=== PATIENT | female | born 1990 | race American Indian/Alaskan Native ===

== ENCOUNTER 2017-07-21 11:32 | Emergency (ER) | payer OTHER ==
[2017-07-21 11:45] VITALS: RESP 18; TEMP 98.4; O2SAT 100
--- NOTE | 2017-07-21 12:03 | ED PDOC ---
Arrival/HPI - General Chief Complaint: Abdominal Pain Time Seen by Provider: 07/21/17 11:37 Historian: Patient - History of Present Illness Narrative History of Present Illness (Text): 07/21/17 12:00 26 year old female presents to the Emergency department complaining of sharp periumbilical pain for 2 days. Patient states she has never experienced this before. Patient denies any fever, chills, chest pain, shortness of breath, radiation of pain, nausea, vomiting, diarrhea, genitourinary symptoms, back pain , neck pain, headache, dizziness, or any other complaints. Time/Duration: < week (2 days) Symptom Onset: Gradual Symptom Course: Unchanged Context: Home Associated Symptoms (Text): 07/21/17 12:24 Sharp periumbilical abdominal pain for 2 days. Patient relates it to eating fatty fried food. No nausea vomiting or diarrhea. No genitourinary symptoms. No radiation. No chest pain palpitations or dyspnea. No fever or chills. She has never experienced this previously. Past Medical History - Provider Review Nursing Documentation Reviewed: Yes - Infectious Disease Hx of Infectious Diseases: None - Psychiatric Hx Substance Use: No Family/Social History - Physician Review Nursing Documentation Reviewed: Yes Family/Social History: Unknown Family HX Smoking Status: Light Smoker < 10 Cigarettes Daily Hx Alcohol Use: Yes Frequency of alcohol use: Socially Hx Substance Use: Yes (Marijuana) Allergies/Home Meds Allergies/Adverse Reactions: Allergies No Known Allergies Allergy (Verified 07/21/17 11:45) Home Medications: Home Meds Medication Instructions Recorded Confirmed Norgestimate-Ethinyl Estradiol 1 tab PO DAILY 07/21/17 07/21/17 [Bond-Linyah 35 Mcg-0.25 mg] Review of Systems - Physician Review All systems were reviewed & negative as marked: Yes - Review of Systems Constitutional: absent: Fatigue, Fevers, Night Sweats Respiratory: absent: SOB, Cough, Sputum, Wheezing Cardiovascular: absent: Chest Pain, Syncope Gastrointestinal: Abdominal Pain (periumbilical pain). absent: Diarrhea, Nausea , Vomiting Genitourinary Female: absent: Dysuria, Frequency, Hematuria Musculoskeletal: absent: Back Pain, Neck Pain Neurological: absent: Headache, Dizziness Physical Exam Vital Signs Reviewed: Yes Vital Signs Temp Pulse Resp BP Pulse Ox 07/21/17 11:39 98.4 F 62 18 124/79 100 Temperature: Afebrile Blood Pressure: Normal Pulse: Regular Respiratory Rate: Normal Appearance: Positive for: Well-Appearing, Non-Toxic, Uncomfortable Pain Distress: Mild Mental Status: Positive for: Alert and Oriented X 3 - Systems Exam Head: Present: Atraumatic, Normocephalic Pupils: Present: PERRL Extroacular Muscles: Present: EOMI Conjunctiva: Present: Normal Mouth: Present: Moist Mucous Membranes Pharnyx: No: ERYTHEMA, EXUDATE, TONSILS ENLARGED Neck: Present: Normal Range of Motion Respiratory/Chest: Present: Clear to Auscultation, Good Air Exchange. No: Respiratory Distress, Accessory Muscle Use Cardiovascular: Present: Regular Rate and Rhythm, Normal S1, S2. No: Murmurs Abdomen: Present: Tenderness (mild generalized abdominal tenderness), Normal Bowel Sounds, Guarding (voluntary). No: Distention, Peritoneal Signs, Rebound Back: Present: Normal Inspection. No: CVA Tenderness Upper Extremity: Present: Normal Inspection. No: Cyanosis, Edema Lower Extremity: Present: Normal Inspection. No: Edema Neurological: Present: GCS=15, CN II-XII Intact, Speech Normal, Motor Func Grossly Intact Skin: Present: Warm, Dry, Normal Color. No: Rashes Psychiatric: Present: Alert, Oriented x 3, Normal Insight, Normal Concentration Medical Decision Making ED Course and Treatment: 07/21/17 12:05 Impression: 26 year old female presents to the Emergency department complaining of sharp periumbilical pain. Plan: -- Abdominal ultrasound -- Urinalysis, HCG qualitative -- Labs -- Toradol, Protonix, Sodium Chloride IV fluids -- Reassess and disposition Progress Notes: 07/21/17 14:06 Pain is improved with Protonix and Toradol. 07/21/17 14:33 Symptoms have improved. Workup is unremarkable. Patient will be discharged home with boyfriend to follow up with PMD. Follow-up in the ER as needed. - Lab Interpretations Lab Results: 07/21/17 12:30 07/21/17 12:30 Lab Results 07/21/17 12:30: Sodium 140, Potassium 4.7, Chloride 105, Carbon Dioxide 26, Anion Gap 15, BUN 11, Creatinine 0.8, Est GFR ( Amer) > 60, Est GFR (Non- Af Amer) > 60, Random Glucose 92, Calcium 9.8, Total Bilirubin 0.9, AST 22, ALT 16, Alkaline Phosphatase 31 L, Total Protein 7.9, Albumin 4.3, Globulin 3.7, Albumin/Globulin Ratio 1.2, Lipase 97 07/21/17 12:30: WBC 5.0, RBC 5.26, Hgb 12.3, Hct 39.3, MCV 74.7 L, MCH 23.4 L, MCHC 31.3, RDW 15.2 H, Plt Count 266, MPV 9.4, Gran % 51.0, Lymph % (Auto) 40.4 H, Bond % (Auto) 6.4 H, Eos % (Auto) 1.6, Baso % (Auto) 0.6, Gran # 2.53, Lymph # (Auto) 2.0, Bond # (Auto) 0.3, Eos # (Auto) 0.1, Baso # (Auto) 0.03 07/21/17 12:00: Urine Color Yellow, Urine Appearance Clear, Urine pH 6.0, Ur Specific [place] 1.025, Urine Protein Negative, Urine Glucose (UA) Negative, Urine Ketones Negative, Urine Blood Negative, Urine Nitrate Negative, Urine Bilirubin Negative, Urine Urobilinogen 0.2, Ur Leukocyte Esterase Negative, Urine HCG, Qual Negative - RAD Interpretation Radiology Orders: 07/21/17 12:12 ABDOMEN COMPLETE [US] Stat Ultrasound of the abdomen is read by the radiologist shows no acute findings. Hand Stripper: Radiologist - Medication Orders Current Medication Orders: Discontinued Medications Sodium Chloride (Sodium Chloride 0.9%) 1,000 mls @ 1,000 mls/hr IV .Q1H STA Stop: 07/21/17 13:11 Last Admin: 07/21/17 12:31 Dose: 1,000 mls/hr eMAR Start Stop Document 07/21/17 12:31 EQ (Rec: 07/21/17 12:31 EQ [id number]) Intravenous Solution Start Date 07/21/17 Start Time 12:31 Ketorolac Tromethamine (Toradol) 30 mg IVP STAT STA Stop: 07/21/17 12:13 Last Admin: 07/21/17 12:31 Dose: 30 mg MAR Pain Assessment Document 07/21/17 12:31 EQ (Rec: 07/21/17 12:32 EQ [id number]) Pain Reassessment Is this a pain reassessment? No Sleep Is patient sleeping during reassessment? No Presence of Pain Presence of Pain Yes IVP Administration Document 07/21/17 12:31 EQ (Rec: 07/21/17 12:32 EQ [id number]) Charges for Administration # of IVP Administrations 1 Pantoprazole Sodium (Protonix Inj) 40 mg IVP STAT STA Stop: 07/21/17 12:13 Last Admin: 07/21/17 12:31 Dose: 40 mg IVP Administration Document 07/21/17 12:31 EQ (Rec: 07/21/17 12:31 EQ [id number]) Charges for Administration # of IVP Administrations 1 - Scribe Statement The provider has reviewed the documentation as recorded by the Scriblv Armendariz All medical record entries made by the Scribe were at my direction and personally dictated by me. I have reviewed the chart and agree that the record accurately reflects my personal performance of the history, physical exam, medical decision making, and the department course for this patient. I have also personally directed, reviewed, and agree with the discharge instructions and disposition. Disposition/Present on Arrival - Present on Arrival Any Indicators Present on Arrival: No History of DVT/PE: No History of Uncontrolled Diabetes: No Urinary Catheter: No History of Decub. Ulcer: No History Surgical Site Infection Following: None - Disposition Have Diagnosis and Disposition been Completed?: Yes Diagnosis: Abdominal pain Disposition: HOME/ ROUTINE Disposition Time: 14:34 Patient Plan: Discharge Condition: IMPROVED Discharge Instructions (ExitCare): Acute Abdomen (Belly Pain) Prescriptions: Pantoprazole Sodium [Protonix] 40 mg PO DAILY #20 ect Referrals: Fredi Salazar MD [Primary Care Provider] - Follow up with primary Forms: [facility] ([place]), WORK NOTE
[2017-07-21] MEDS ORDERED: Sodium Chloride 0.9% 1,000 ML IV STA (12:12)
[2017-07-21 12:39] LABS: BASO # 0.03 K/mm3 (0.0-2.0); BASO % 0.6 % (0.0-3.0); EOS # 0.1 (0.0-0.7); EOS % 1.6 % (1.5-5.0); GRAN # 2.53 (1.4-6.5); HEMOGLOBIN 12.3 g/dL (12.0-16.0); LYMPH % 40.4 % (22.0-35.0); MEAN CELL VOLUME 74.7 fl (80.0-105.0); MEAN CORPUSCULAR HEMOGLOBIN 23.4 pg (25.0-35.0); MEAN CORPUSCULAR HGB CONC 31.3 g/dl (31.0-37.0); MEAN PLATELET VOLUME 9.4 fl (7.0-11.0); MONO # 0.3 (0.1-0.6); MONO % 6.4 % (1.0-6.0); RBC 5.26 10^6/uL (3.5-6.1); RED CELL DISTRIBUTION WIDTH 15.2 % (11.5-14.5)
[2017-07-21 12:55] LABS: URINE BILIRUBIN NEGATIVE (NEGATIVE); URINE BLOOD NEGATIVE (NEGATIVE); URINE GLUCOSE (UA) NEGATIVE (NEGATIVE); URINE LEUKOCYTE ESTERASE NEGATIVE Leu/uL (NEGATIVE); URINE PROTEIN NEGATIVE mg/dL (<30 mg/dL); URINE UROBILINOGEN 0.2 E.U./dL (<1 E.U./dL)
[2017-07-21 12:59] LABS: URINE APPEARANCE CLEAR (CLEAR); URINE COLOR YELLOW (YELLOW)
[2017-07-21 13:02] LABS: HCG,QUALITATIVE URINE NEGATIVE (NEGATIVE)
[2017-07-21 13:14] LABS: ALB/GLOB RATIO 1.2 (1.1-1.8); ALBUMIN 4.3 g/dL (3.0-4.8); ALT/SGPT 16 U/L (7-56); AST/SGOT 22 U/L (14-36); BLOOD UREA NITROGEN 11 mg/dL (7-21); CALCIUM 9.8 mg/dL (8.4-10.5); GFR AFRICAN-AMERICAN > 60; GFR NON-AFRICAN AMERICAN > 60; LIPASE 97 U/L (23-300)
--- NOTE | 2017-07-21 14:32 | US ---
HISTORY: pain COMPARISON: None. TECHNIQUE: Sonographic evaluation of the abdomen. FINDINGS: LIVER: Measures 16.5 cm. Patent portal vein. Portal venous flow: Hepatopetal. Unremarkeable echogenicity of the liver parenchyma. No mass. No intrahepatic bile duct dilatation. GALLBLADDER: Unremarkable. No gallstones. COMMON BILE DUCT: Measures 3.5 mm. No stones. No dilatation. PANCREAS: Unremarkable as visualized. No mass. No ductal dilatation. RIGHT KIDNEY: Measures 4.2 x 9.6cm. Normal echogenicity. No calculus, mass, or hydronephrosis. LEFT KIDNEY: Measures 4.5 x 9.0cm. Normal echogenicity. No calculus, mass, or hydronephrosis. SPLEEN: Normal in size and contour. No mass. AORTA: No aneurysmal dilatation. IVC: Unremarkable. OTHER FINDINGS: None. IMPRESSION: Unremarkable abdominal sonogram.
[2017-07-21 14:51] VITALS: BP 123/82; PULSE 57
== END 2017-07-21 15:08 | disposition home or self-care (01) ==
LOC: MERGE 11:32 → ED 11:32
DX: R10.9 Unspecified abdominal pain (principal)
CPT/HCPCS: 76700; 80053; 81003; 83690; 84703; 85025; 96374; 96375; 99283; C9113; J1885; J7040